=== PATIENT | female | born 1980 | race Caucasian/White ===

== ENCOUNTER 2016-06-10 18:18 | Emergency (ER) | payer BC, MEDICAID ==
[2016-06-10] MEDS ORDERED: AMOXICILLIN/POTASSIUM CLAV 875MG/125MG TABLET PO ONE (19:55)
--- NOTE | 2016-06-10 20:01 | Emergency Department Record ---
History of Present Illness - General Chief complaint: Cold Stated complaint: SINUS INFECTION Time Seen by Provider: 06/10/16 19:52 Source: Patient Mode of Arrival: Ambulatory Limitations: No limitations - History of Present Illness Initial comments: 36 yo female presents with congestion and drainage for about 3-4 weeks. She has pressure in the face and ears. There is associated sore throat and mild cough. Her hearing feels muffles dues to congestion. No fevers. No NVD. She has had recurrent sinus issues in the past. PCP is Dr Infante. complaint: Sore throat, Other (sinus congestion and drainage) Onset/Timin -: Days(s) Location: R ear, L ear, Throat Severity scale (1-10): 4 Quality: Aching Consistency: Constant Improves with: None Worsens with: None Associated Symptoms: Cough, Pain with swallowing, Rhinorrhea, Sore throat - Related Data Home Medications Medication Instructions Recorded Confirmed Last Taken Budesonide/Formoterol Fumarate 2 puff INH BID 06/30/15 06/10/16 04/06/16 [Symbicort 160-4.5 Mcg Inhaler] Previous Rx's Medication Instructions Recorded Pnv95/Ferrous Fumarate/FA 1 each PO DAILY #30 tablet 09/22/14 [ Tablet] Epinephrine [Epipen] 0.3 mg IM ASDIR PRN #2 syr 12/04/14 Amoxicillin/Potassium Clav 1 tab PO BID #20 tab 06/10/16 [Augmentin 875-125 Tablet] Allergies Allergy/AdvReac Type Severity Reaction Status Date / Time neomycin Allergy Severe CHEMICAL Verified 06/10/16 19:38 BURN prednisone Allergy Severe "ORGANS Verified 06/10/16 19:38 SHUT DOWN" erythromycin base Allergy Intermediate VOMITING Verified 06/10/16 19:38 BLOOD codeine Allergy Mild VOMITING Verified 06/10/16 19:38 Travel Screening - Travel/Exposure Within Last 30 Days Have you traveled within the last 30 days?: No - Travel/Exposure Within Last Year Have you traveled outside the [place] in the last year?: No - Additonal Travel Details Have you been exposed to anyone with a communicable illness?: No - Travel Symptoms Symptom Screening: None Review of Systems Constitutional: Reports: Chills, Malaise. Denies: Fever Eyes: Denies: Eye discharge, Eye pain, Photophobia, Vision change ENT: Reports: Congestion, Ear pain, Throat pain Respiratory: Reports: Cough. Denies: Dyspnea, Stridor Cardiovascular: Denies: Chest pain, Palpitations, Syncope Endocrine: Denies: Fatigue Gastrointestinal: Denies: Abdominal pain, Diarrhea, Nausea, Vomiting Genitourinary: Denies: Dysuria Musculoskeletal: Denies: Arthralgia, Back pain, Myalgia, Neck pain Skin: Denies: Bruising, Change in color, Rash Neurological: Reports: Headache. Denies: Confusion, Weakness Psychiatric: Denies: Anxiety Hematological/Lymphatic: Denies: Blood Clots, Easy bleeding, Easy bruising, Swollen glands Past Medical History - SOCIAL HISTORY Smoking Status: Light tobacco smoker (<10/day) Alcohol Use: Occassional Drug Use: None - RESPIRATORY Hx Respiratory Disorders: Yes Hx COPD: Yes - CARDIOVASCULAR Hx Cardio Disorders: No - NEURO Hx Neuro Disorders: No - GI Hx GI Disorders: No - Hx Genitourinary Disorders: Yes Hx UTI: Yes - ENDOCRINE Hx Endocrine Disorders: No - MUSCULOSKELETAL Hx Musculoskeletal Disorders: Yes Hx Fibromyalgia: Yes - PSYCH Hx Psych Problems: Yes Hx Depression: Yes - HEMATOLOGY/ONCOLOGY Hx Hematology/Oncology Disorders: No Family Medical History Any Significant Family History?: No Hx Cancer: Grandparents *Cancer Comment: Aunt Hx Heart Disease: Grandparents Hx Resp Disorders: Grandparents Physical Exam - General General Appearance: Alert, Oriented x3, Cooperative, No acute distress Limitations: No limitations - Head Head exam: Normal inspection - Eye Eye exam: Normal appearance, PERRL. negative: Conjunctival injection, Periorbital swelling, Periorbital tenderness - ENT ENT exam: Mucous membranes moist. negative: Normal exam, Normal orophraynx, TM' s normal bilaterally Ear exam: Normal external inspection. negative: External canal tenderness Nasal Exam: Discharge (thick, opaque), Sinus tenderness (frontal and facial) Mouth exam: Tongue normal. negative: Muffled voice, Trismus Teeth exam: Normal inspection. negative: Dental caries Throat exam: Tonsillar erythema. negative: Tonsillomegaly, Tonsillar exudate, R peritonsillar mass, L peritonsillar mass - Neck Neck exam: Normal inspection, Full ROM. negative: Lymphadenopathy, Tenderness - Respiratory Respiratory exam: Normal lung sounds bilaterally. negative: Respiratory distress - Cardiovascular Cardiovascular Exam: Regular rate, Normal rhythm, Normal heart sounds - GI/Abdominal GI/Abdominal exam: Soft, Normal bowel sounds. negative: Tenderness - Rectal Rectal exam: Deferred - exam: Deferred - Extremities Extremities exam: Normal inspection, Full ROM, Normal capillary refill. negative: Tenderness - Back Back exam: Reports: Normal inspection, Full ROM. Denies: CVA tenderness (R), CVA tenderness (L), Muscle spasm, Paraspinal tenderness, Rash noted, Tenderness - Neurological Neurological exam: Alert, Normal gait, Oriented X3 - Psychiatric Psychiatric exam: Normal affect, Normal mood - Skin Skin exam: Dry, Intact, Normal color, Warm Course Vital Signs 06/10/16 19:27 Temperature 98.4 F Pulse Rate [ 89 Pulse Ox Probe] Respiratory 18 Rate Blood Pressure 116/76 [Left Arm] Pulse Ox 98 - Reevaluation(s) Reevaluation #1: The patient has been symptomatic for a few weeks with symptoms CW sinusitis. She will be treated with Augmentin 06/10/16 19:59 Disposition Disposition: Discharge Clinical Impression: Sinusitis Qualifiers: Sinusitis location: frontal Chronicity: acute Recurrence: not specified as recurrent Qualified Code(s): J01.10 - Acute frontal sinusitis, unspecified Disposition: Home, Self-Care Condition: (1) Good Instructions: Sinusitis (ED) Additional Instructions: Follow up for a recheck with your doctor this week Start the Augmentin as directed Prescriptions: Amoxicillin/Potassium Clav [Augmentin 875-125 Tablet] 1 tab PO BID #20 tab Forms: Patient Portal Access Time of Disposition: 20:01
== END 2016-06-10 20:14 | disposition home or self-care (01) ==
LOC: ER 18:18
DX: J01.10 Acute frontal sinusitis, unspecified (principal)
CPT/HCPCS: 99282

== ENCOUNTER 2016-08-08 13:29 | Emergency (ER) | payer BC, MEDICAID ==
--- NOTE | 2016-08-08 13:49 | Emergency Department Record ---
History of Present Illness - General Chief complaint: ENT Stated complaint: SORE THROAT/SWELLING Time Seen by Provider: 08/08/16 13:48 Source: Patient Mode of Arrival: Ambulatory Limitations: No limitations - History of Present Illness Initial comments: The patient is here due to a ST and difficulty swallowing for 4 months which has gotten worse for the last week. She denies any fever, chills, but has had nasal congestion and drainage with sinus congestion and a chronic cough. There is no reported hoarseness or voice changes but the patient feels like she is having difficulty swallowing. MD complaint: Sore throat Onset/Timin -: Month(s) Location: Throat Severity: Mild Severity scale (1-10): 3 Consistency: Constant Improves with: None Worsens with: None Associated Symptoms: Sore throat - Related Data Home Medications Medication Instructions Recorded Confirmed Last Taken Budesonide/Formoterol Fumarate 2 puff INH BID 06/30/15 08/08/16 04/06/16 [Symbicort 160-4.5 Mcg Inhaler] Previous Rx's Medication Instructions Recorded Benzonatate [Tessalon] 1 cap PO Q8H PRN #15 cap 08/08/16 Doxycycline Monohydrate [Mondoxyne 100 mg PO BID #14 capsule 08/08/16 Nl] Fluticasone Propionate [Flonase] 2 spray EACH NARES DAILY #1 bottle 08/08/16 Allergies Allergy/AdvReac Type Severity Reaction Status Date / Time neomycin Allergy Severe CHEMICAL Unverified 07/10/16 13:57 BURN prednisone Allergy Severe "ORGANS Unverified 07/10/16 13:57 SHUT DOWN" erythromycin base Allergy Intermediate VOMITING Unverified 07/10/16 13:57 BLOOD codeine Allergy Mild VOMITING Unverified 07/10/16 13:57 Travel Screening - Travel/Exposure Within Last 30 Days Have you traveled within the last 30 days?: No Review of Systems Constitutional: Denies: Chills, Fever Eyes: Denies: Eye discharge ENT: Reports: Throat pain. Denies: Congestion Respiratory: Denies: Cough, Dyspnea Past Medical History - SOCIAL HISTORY Smoking Status: Light tobacco smoker (<10/day) Alcohol Use: None Drug Use: None - RESPIRATORY Hx Respiratory Disorders: Yes Hx COPD: Yes - CARDIOVASCULAR Hx Cardio Disorders: No - NEURO Hx Neuro Disorders: No - GI Hx GI Disorders: No - Hx Genitourinary Disorders: Yes Hx UTI: Yes - ENDOCRINE Hx Endocrine Disorders: No - MUSCULOSKELETAL Hx Musculoskeletal Disorders: Yes Hx Fibromyalgia: Yes - PSYCH Hx Psych Problems: Yes Hx Depression: Yes - HEMATOLOGY/ONCOLOGY Hx Hematology/Oncology Disorders: No Family Medical History Any Significant Family History?: Yes Hx Cancer: Grandparents *Cancer Comment: Aunt Hx Heart Disease: Grandparents Hx Resp Disorders: Grandparents Physical Exam - General General Appearance: Alert, Oriented x3, Cooperative, No acute distress - Head Head exam: Atraumatic, Normocephalic, Normal inspection - Eye Eye exam: Normal appearance, PERRL - ENT ENT exam: Normal exam, Mucous membranes moist, Normal external ear exam, TM's normal bilaterally. negative: Normal orophraynx Throat exam: Tonsillar erythema. negative: Normal inspection, Tonsillomegaly, Tonsillar exudate, R peritonsillar mass, L peritonsillar mass - Neck Neck exam: Normal inspection, Full ROM. negative: Lymphadenopathy, Meningismus , Tenderness - Respiratory Respiratory exam: Normal lung sounds bilaterally. negative: Respiratory distress - Cardiovascular Cardiovascular Exam: Regular rate, Normal rhythm, Normal heart sounds Course Vital Signs 08/08/16 13:39 Temperature 98.6 F Pulse Rate 85 Respiratory 20 Rate Blood Pressure 126/83 Pulse Ox 100 - Reevaluation(s) Reevaluation #1: The patient is doing well at this time. I did explain to her that her tests are WNL's. We will treat her for a sinus infection and will have her F/U with her PCP next week for recheck. 08/08/16 14:42 Medical Decision Making - Data Complexity MDM Data: Labs Ordered and/or Reviewed (Rapid Strep: Neg), X-Ray Ordered and/or Reviewed - Radiology Data Radiology results: Report reviewed (St Neck: WNL's) Disposition Disposition: Discharge Clinical Impression: Sinusitis Qualifiers: Sinusitis location: unspecified location Chronicity: acute Recurrence: not specified as recurrent Qualified Code(s): J01.90 - Acute sinusitis, unspecified Disposition: Home, Self-Care Condition: (2) Stable Instructions: Sinusitis (ED) Additional Instructions: Please take the Doxycycline, FLonase and Tessilon as directed. Please see your PCP next week for recheck. Return to the ER if worse. Prescriptions: Fluticasone Propionate [Flonase] 2 spray EACH NARES DAILY #1 bottle Doxycycline Monohydrate [Mondoxyne Nl] 100 mg PO BID #14 capsule Benzonatate [Tessalon] 1 cap PO Q8H PRN #15 cap PRN Reason: Cough Forms: Patient Portal Access Time of Disposition: 15:04
== END 2016-08-08 15:10 | disposition home or self-care (01) ==
LOC: ER 13:29
DX: J01.90 Acute sinusitis, unspecified (principal); R13.10 Dysphagia, unspecified
CPT/HCPCS: 70360; 87880; 99283

== ENCOUNTER 2017-04-05 09:13 | Emergency (ER) | payer BC, MEDICAID ==
--- NOTE | 2017-04-05 09:28 | Emergency Department Record ---
History of Present Illness - General Chief complaint: ENT Stated complaint: EAR PAIN Time Seen by Provider: 04/05/17 09:19 Source: Patient Mode of Arrival: Ambulatory Limitations: No limitations - History of Present Illness Initial comments: The patient is here due to not feeling well for a week. She has had a cough, sinus drainage, and L ear pain for a week. She denies any SOB, SYLVIA, sputum production or fever. The patient is 6 months also and denies any CP, or AP or any vaginal bleeding. MD complaint: Ear pain, Sore throat Onset/Timin -: Week(s) Location: L ear Context- Ear: Recent illness Associated Symptoms: Cough - Related Data Home Medications Medication Instructions Recorded Confirmed Last Taken Bupropion HCl [Wellbutrin Sr] 150 mg PO BID 04/05/17 04/05/17 04/05/17 Fluoxetine HCl 60 mg PO DAILY 04/05/17 04/05/17 04/05/17 Previous Rx's Medication Instructions Recorded Fluticasone Propionate [Flonase] 2 spray EACH NARES DAILY #1 bottle 08/08/16 Azithromycin [Zithromax] 250 mg PO ASDIR #6 tab 04/05/17 Allergies Allergy/AdvReac Type Severity Reaction Status Date / Time neomycin Allergy Severe CHEMICAL Unverified 11/07/16 14:29 BURN prednisone Allergy Severe "ORGANS Unverified 11/07/16 14:29 SHUT DOWN" erythromycin base Allergy Intermediate VOMITING Unverified 11/07/16 14:29 BLOOD codeine Allergy Mild VOMITING Unverified 11/07/16 14:29 Travel Screening - Travel/Exposure Within Last 30 Days Have you traveled within the last 30 days?: No - Travel/Exposure Within Last Year Have you traveled outside the [place] in the last year?: No - Additonal Travel Details Have you been exposed to anyone with a communicable illness?: No - Travel Symptoms Symptom Screening: None Review of Systems Constitutional: Denies: Chills, Fever Past Medical History - SOCIAL HISTORY Smoking Status: Current every day smoker Alcohol Use: None Drug Use: None - RESPIRATORY Hx Respiratory Disorders: Yes Hx COPD: Yes - CARDIOVASCULAR Hx Cardio Disorders: Yes Hx Palpitations: Yes - NEURO Hx Neuro Disorders: No - GI Hx GI Disorders: No - Hx Genitourinary Disorders: Yes Hx UTI: Yes - ENDOCRINE Hx Endocrine Disorders: No - MUSCULOSKELETAL Hx Musculoskeletal Disorders: Yes Hx Fibromyalgia: Yes - PSYCH Hx Psych Problems: Yes Hx Anxiety: Yes Hx Depression: Yes - HEMATOLOGY/ONCOLOGY Hx Hematology/Oncology Disorders: No Family Medical History Any Significant Family History?: No Hx Cancer: Grandparents *Cancer Comment: Aunt Hx Heart Disease: Grandparents Hx Resp Disorders: Grandparents Physical Exam - General General Appearance: Alert, Oriented x3, Cooperative, No acute distress - Head Head exam: Atraumatic, Normocephalic, Normal inspection - Eye Eye exam: Normal appearance, PERRL, EOMI - ENT ENT exam: negative: Normal exam, Normal orophraynx, TM's normal bilaterally ( The L TM is erythematous with a mild effusion.) Throat exam: Tonsillar erythema. negative: Normal inspection, Tonsillomegaly, Tonsillar exudate - Neck Neck exam: Normal inspection, Full ROM. negative: Lymphadenopathy, Meningismus , Tenderness - Respiratory Respiratory exam: Normal lung sounds bilaterally. negative: Respiratory distress - Cardiovascular Cardiovascular Exam: Regular rate, Normal rhythm, Normal heart sounds - GI/Abdominal GI/Abdominal exam: Soft, Normal bowel sounds. negative: Tenderness Course Vital Signs 04/05/17 09:14 Temperature 98.2 F Pulse Rate 91 H Respiratory 16 Rate Blood Pressure 117/75 Pulse Ox 98 - Reevaluation(s) Reevaluation #1: The patient is to take the medicine as directed and see her PCP if not better this week. 04/05/17 09:30 Disposition Disposition: Discharge Clinical Impression: Sinusitis nasal Qualifiers: Sinusitis location: unspecified location Chronicity: acute Recurrence: non- recurrent Qualified Code(s): J01.90 - Acute sinusitis, unspecified Disposition: Home, Self-Care Condition: (2) Stable Instructions: Rhinosinusitis (ED) Additional Instructions: Please take the Zpak as directed. May use an OTC decongestant if given the OK by your OB. Take Tylenol for pain. Please see your PCP if not better in 3 days. Prescriptions: Azithromycin [Zithromax] 250 mg PO ASDIR #6 tab Forms: Patient Portal Access Time of Disposition: 09:28 Quality - Quality Measures Quality Measures: N/A - Blood Pressure Screening View Details: Yes Does Patient Have Any of the Following: No Blood Pressure Classification: Pre-Hypertensive BP Reading Systolic Measurement: 120 Diastolic Measurement: 73 Screening for High Blood Pressure: < Pre-Hypertensive BP, F/U Documented > [ [id number]] Pre-Hypertensive Follow-up Interventions: Referral to alternative/primary care provider.
== END 2017-04-05 09:41 | disposition home or self-care (01) ==
LOC: ER 09:13
DX: J01.90 Acute sinusitis, unspecified (principal); H92.02 Otalgia, left ear
CPT/HCPCS: 99282

== ENCOUNTER 2018-03-28 07:08 | Emergency (ER) | payer BC, MEDICAID ==
[2018-03-28] MEDS ORDERED: 0.9 % SODIUM CHLORIDE 1,000 ML BAG IV ONE (07:45)
[2018-03-28] MEDS ORDERED: ONDANSETRON HCL IV 4 MG/2 ML VIAL IV ONE (07:45)
--- NOTE | 2018-03-28 07:50 | Emergency Department Record ---
History of Present Illness - General Chief complaint: Nausea, Vomiting, Diarrhea Stated complaint: DIARRHEA, NAUSEA Time Seen by Provider: 03/28/18 07:17 Source: Patient Mode of Arrival: Ambulatory Limitations: No limitations - History of Present Illness Initial comments: The patient is here due to frequent loose watery stools over the last 36 hours. She has had mild nausea but no vomiting or AP. Her abdomen has been crampy at times prior to the diarrhea. The patient states her family at home has been ill with the same issues but they are not as bad. She denies any fever, chills, blood in the stool or any recent Abx use. MD complaint: Diarrhea, Nausea Onset/Timin -: Hour(s) Description of Diarrhea: Other Associated Abdominal Pain: Yes Location: Diffuse Severity: Mild Severity scale (1-10): 4 Quality: Cramping Consistency: Intermittent Improves with: None Worsens with: None - Related Data Previous Rx's Medication Instructions Recorded Fluticasone Propionate [Flonase] 2 spray EACH NARES DAILY #1 bottle 08/08/16 Allergies Allergy/AdvReac Type Severity Reaction Status Date / Time neomycin Allergy Severe CHEMICAL Verified 03/28/18 07:12 BURN prednisone Allergy Severe "ORGANS Verified 03/28/18 07:12 SHUT DOWN" erythromycin base Allergy Intermediate VOMITING Verified 03/28/18 07:12 BLOOD codeine Allergy Mild VOMITING Verified 03/28/18 07:12 Travel Screening - Travel/Exposure Within Last 30 Days Have you traveled within the last 30 days?: No - Travel/Exposure Within Last Year Have you traveled outside the [place] in the last year?: No - Additonal Travel Details Have you been exposed to anyone with a communicable illness?: No - Travel Symptoms Symptom Screening: None Review of Systems Constitutional: Denies: Chills, Fever Eyes: Denies: Eye discharge ENT: Denies: Congestion Respiratory: Denies: Cough, Dyspnea Past Medical History - SOCIAL HISTORY Smoking Status: Current every day smoker Alcohol Use: Rare Drug Use: None - RESPIRATORY Hx Respiratory Disorders: Yes Hx COPD: Yes - CARDIOVASCULAR Hx Cardio Disorders: Yes Hx Palpitations: Yes - NEURO Hx Neuro Disorders: No - GI Hx GI Disorders: No - Hx Genitourinary Disorders: Yes Hx UTI: Yes - ENDOCRINE Hx Endocrine Disorders: No - MUSCULOSKELETAL Hx Musculoskeletal Disorders: Yes Hx Fibromyalgia: Yes - PSYCH Hx Psych Problems: Yes Hx Anxiety: Yes Hx Depression: Yes - HEMATOLOGY/ONCOLOGY Hx Hematology/Oncology Disorders: No Family Medical History Any Significant Family History?: Yes Hx Cancer: Grandparents *Cancer Comment: Aunt Hx Heart Disease: Grandparents Hx Resp Disorders: Grandparents Physical Exam - General General Appearance: Alert, Oriented x3, Cooperative, No acute distress - Head Head exam: Atraumatic, Normocephalic, Normal inspection - Eye Eye exam: Normal appearance, PERRL - ENT Throat exam: Normal inspection. negative: Tonsillar erythema, Tonsillar exudate - Neck Neck exam: Normal inspection, Full ROM. negative: Tenderness - Respiratory Respiratory exam: Normal lung sounds bilaterally. negative: Respiratory distress - Cardiovascular Cardiovascular Exam: Regular rate, Normal rhythm, Normal heart sounds - GI/Abdominal GI/Abdominal exam: Soft, Normal bowel sounds. negative: Rebound, Rigid, Tenderness - Extremities Extremities exam: Normal inspection, Full ROM, Normal capillary refill. negative: Tenderness - Neurological Neurological exam: Alert. negative: Motor sensory deficit Course Vital Signs 03/28/18 07:14 Temperature 98.7 F Pulse Rate 86 Respiratory 16 Rate Blood Pressure 118/76 Pulse Ox 99 - Reevaluation(s) Reevaluation #1: The patient is doing better at this time. I did discuss the neg labs with the patient and the need for F/U this week due to the viral diarrhea if not better. 03/28/18 09:15 Medical Decision Making - Lab Data Result diagrams: 03/28/18 08:00 03/28/18 08:00 Disposition Disposition: Discharge Clinical Impression: Diarrhea Qualifiers: Diarrhea type: unspecified type Qualified Code(s): R19.7 - Diarrhea, unspecified Disposition: Home, Self-Care Condition: (2) Stable Instructions: Acute Diarrhea (ED) Additional Instructions: Please use OTC antidiarheal medicines as needed and drink plenty of fluids. Please see your family doctor in 2-3 days if not better. Return to the ER for any worsening symptoms. Forms: Patient Portal Access Time of Disposition: 09:07 Quality - Quality Measures Quality Measures: N/A - Blood Pressure Screening View Details: Yes Does Patient Have Any of the Following: No Blood Pressure Classification: Normal BP Reading Systolic Measurement: 105 Diastolic Measurement: 63 Screening for High Blood Pressure: < Normal BP, F/U Not Required > [G8783]
[2018-03-28 08:10] LABS: BASO % 0.3 % (0-6); GRAN % 73.9 % (47-80); HEMATOCRIT 46.6 % (35.0-47.0); HEMOGLOBIN 15.8 gm/dl (11.6-16.0); LYMPH % 18.9 % (16-45); MEAN CELL VOLUME 91.2 fl (81-97); MEAN CORPUSCULAR HEMOGLOBIN 30.9 pg (27-33); MEAN CORPUSCULAR HGB CONC 33.9 g/dl (32-36); MEAN PLATELET VOLUME 9.5 fl (7.4-10.4); MONO % 4.9 % (0-9); PLATELET COUNT 305 K/uL (130-400); RED BLOOD COUNT 5.11 M/uL (3.80-5.40); RED CELL DISTRIBUTION WIDTH 12.6 % (11.5-14.5); WHITE BLOOD COUNT W/O DIFF 11.6 K/uL (4.2-12.2)
[2018-03-28 08:22] LABS: BLOOD UREA NITROGEN 13 mg/dL (6-20); CREATININE 0.8 mg/dL (0.5-0.9); EST GLOMERULAR FILTRATION RATE > 60 mL/min
[2018-03-28 08:23] LABS: TOTAL PROTEIN 8.7 g/dL (6.6-8.7)
[2018-03-28 08:25] LABS: GLUCOSE,RANDOM 91 mg/dL (74-109)
[2018-03-28 08:27] LABS: ALB/GLOB RATIO 1.5 (1.1-1.8); ALBUMIN 5.2 g/dL (4.0-5.0); ALT/SGPT 24 U/L (<33); AST/SGOT 21 U/L (10.0-35.0)
[2018-03-28 08:28] LABS: ALKALINE PHOSPHATASE 115 U/L (35-104); LIPASE 16 U/L (13-60)
== END 2018-03-28 09:24 | disposition home or self-care (01) ==
LOC: ER 07:08
DX: R19.7 Diarrhea, unspecified (principal); R10.0 Acute abdomen; J44.9 Chronic obstructive pulmonary disease, unspecified; F17.210 Nicotine dependence, cigarettes, uncomplicated
CPT/HCPCS: 99284 ×2; 96374; 96361; 83690; 85025; 80053; 89055; 84703; J2405; J7030

== ENCOUNTER 2018-08-17 08:19 | Emergency (ER) | payer BC, MEDICAID ==
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
[2018-08-17] MEDS ORDERED: HYDROCODONE/APAP 5/325MG TABLET PO ONE (09:56)
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
== END 2018-08-17 10:52 | disposition home or self-care (01) ==
LOC: ER 08:19
DX: G89.11 Acute pain due to trauma (principal); R07.89 Other chest pain; M54.5 Low back pain; M54.6 Pain in thoracic spine; J44.9 Chronic obstructive pulmonary disease, unspecified; F17.210 Nicotine dependence, cigarettes, uncomplicated; V59.49XA Driver of pick-up truck or van injured in collision with other motor vehicles in traffic accident, initial encounter
CPT/HCPCS: 71046; 72072; 72110; 99283; 99284

== ENCOUNTER 2018-11-21 13:10 | Emergency (ER) | payer BC ==
[2018-11-21 13:34] LABS: URINE APPEARANCE CLOUDY; URINE BILIRUBIN SMALL (NEGATIVE); URINE BLOOD LARGE (NEGATIVE); URINE COLOR YELLOW; URINE GLUCOSE (UA) NEGATIVE (NEGATIVE); URINE KETONE NEGATIVE (NEGATIVE); URINE LEUKOCYTE ESTERASE MODERATE (NEGATIVE); URINE NITRITE NEGATIVE (NEGATIVE)
[2018-11-21 13:39] LABS: URINE BACTERIA FEW; URINE EPITHELIAL CELLS 0 - 2 (FEW); URINE RBC >50 (NONE SEEN); URINE WBC 36 - 50 (0-2/hpf)
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
== END 2018-11-21 14:01 | disposition home or self-care (01) ==
LOC: ER 13:10
DX: N30.00 Acute cystitis without hematuria (principal); F17.210 Nicotine dependence, cigarettes, uncomplicated
CPT/HCPCS: 81001; 99283